=== PATIENT | male | born 1975 ===

== ENCOUNTER 2023-01-15 05:30 | Day surgery (SDC) | payer OTHER ==
[2023-01-08 08:00] LABS: HEMATOCRIT 41.9 % (39.0-48.0); HEMOGLOBIN 14.6 g/dL (13-16.00); MEAN CELL VOLUME 101.7 fL (80.0-100.00); MEAN CORPUSCULAR HEMOGLOBIN 35.4 pg (27.00-32.0); MEAN CORPUSCULAR HGB CONC 34.8 g/dl (32.0-36.0); PLATELET COUNT 245 K/uL (150-450); RED BLOOD COUNT 4.11 M/uL (4.00-6.00); RED CELL DISTRIBUTION WIDTH 13.3 % (11.5-14.5)
[2023-01-08 08:11] LABS: URINE APPEARANCE Clear; URINE BILIRRUBIN Negative (NEGATIVE); URINE BLOOD Negative; URINE COLOR Yellow; URINE GLUCOSE Negative (NEGATIVE); URINE LEUKOCYTE Negative; URINE NITRATE Negative; URINE PROTEIN Negative (NEGATIVE); URINE UROBILINOGEN 0.2 E.U./dl
[2023-01-08 08:18] LABS: URINE BACTERIA 1.2 uL (0.0-1933); URINE RBC 0.1 uL (0.0-20.8); URINE WBC 0.4 uL (0.0-23.2)
[2023-01-08 08:38] LABS: ALBUMIN 3.6 gm/dL (3.4-5.0); CALCIUM 8.2 mg/dL (8.5-10.1); CREATININE SERUM 0.86 mg/dL (0.70-1.30); GFR 95.74; PHOSPHOROUS 3.9 mg/dL (2.5-4.9); POTASSIUM 4.19 mEq/L (3.5-5.1)
[2023-01-08 08:42] LABS: INR 1.14; PROTHROMBIN TIME 11.9 SECONDS (9.0-11.5)
[2023-01-08 08:44] LABS: PARTIAL THROMBOPLASTIN TIME 39.3 SECONDS (22.0-34.0)
[~2023-01-15] VITALS: Ht 144.8 cm; Wt 68.0 kg
[2023-01-15] MEDS ORDERED: CIPROFLOXACIN2.5 ML OTIC (14:04)
[2023-01-15] MEDS ORDERED: CEPHALEXIN500 M1 PO (14:04)
== END 2023-01-15 16:15 | disposition home or self-care (01) ==
LOC: CIR.AMB 05:30
PROVIDERS: ATTEND Otolaryngology Otology & Neurotology
DX: H71.22 Cholesteatoma of mastoid, left ear (principal); H72.822 Total perforations of tympanic membrane, left ear; H90.A12 Conductive hearing loss, unilateral, left ear with restricted hearing on the contralateral side; E03.9 Hypothyroidism, unspecified; Z20.822 Contact with and (suspected) exposure to COVID-19